=== PATIENT | female | born 1950 | race Caucasian/White ===

== ENCOUNTER → 2016-11-18 | Outpatient (REF) | payer MEDICARE ==
[2016-11-18 17:26] LABS: ANION GAP 6 MEQ/L (8-16); BLOOD UREA NITROGEN 15 MG/DL (7-18); CALCIUM LEVEL 9.5 MG/DL (8.8-10.2); CARBON DIOXIDE LEVEL 32 MEQ/L (21-32); CHLORIDE LEVEL 102 MEQ/L (98-107); CREATININE FOR GFR 0.78 MG/DL (0.55-1.02); GLOMERULAR FILTRATION RATE > 60.0 (>45); GLUCOSE, FASTING 90 MG/DL (80-110); POTASSIUM SERUM 4.1 MEQ/L (3.5-5.1); SODIUM LEVEL 140 MEQ/L (136-145)
== END ==
LOC: M SFHCCLAY 10:58
PROVIDERS: ATTEND Family Medicine
DX: I10 Essential (primary) hypertension (principal)
CPT/HCPCS: 80048; G0463

== ENCOUNTER → 2017-11-09 | Outpatient (CLI) | payer MEDICARE | LOC: M CLY 11:53 | DX: R05 Cough (principal) | CPT/HCPCS: 71046; G0463 ==

== ENCOUNTER → 2018-02-15 | Outpatient (REF) | payer MEDICARE ==
[2018-02-15 11:42] LABS: HEMATOCRIT 40.1 % (36.0-47.0); HEMOGLOBIN 13.2 g/dl (12.0-15.5); MEAN CORPUSCULAR HEMOGLOBIN 28.9 pg (27.0-33.0); MEAN CORPUSCULAR HGB CONC 32.9 g/dl (32.0-36.5); MEAN CORPUSCULAR VOLUME 87.7 fl (80.0-96.0); PLATELET COUNT, AUTOMATED 201 10^3/uL (150-450); RED BLOOD COUNT 4.57 10^6/uL (4.00-5.40); RED CELL DISTRIBUTION WIDTH 13.1 % (11.5-14.5); WHITE BLOOD COUNT 9.3 10^3/uL (4.0-10.0)
[2018-02-15 12:04] LABS: ALBUMIN 3.3 GM/DL (3.2-5.2); ALBUMIN/GLOBULIN RATIO 1.03 (1.00-1.93); ALKALINE PHOSPHATASE 70 U/L (45-117); ALT/SGPT 23 U/L (12-78); ANION GAP 9 MEQ/L (8-16); AST/SGOT 14 U/L (7-37); BILIRUBIN,TOTAL 0.4 MG/DL (0.2-1.0); BLOOD UREA NITROGEN 11 MG/DL (7-18); CALCIUM LEVEL 8.5 MG/DL (8.8-10.2); CARBON DIOXIDE LEVEL 30 MEQ/L (21-32); CHLORIDE LEVEL 104 MEQ/L (98-107); CHOLESTEROL LEVEL 145 MG/DL (<200); CHOLESTEROL RISK RATIO 2.959 (<5); CREATININE FOR GFR 0.85 MG/DL (0.55-1.30); GLOMERULAR FILTRATION RATE > 60.0 (>45); GLUCOSE, FASTING 115 MG/DL (70-100); HDL CHOLESTEROL 49 MG/DL (>40); LDL CHOLESTEROL 72.2 MG/DL (<100); NON-HDL-C 96 MG/DL; SODIUM LEVEL 143 MEQ/L (136-145); TOTAL PROTEIN 6.5 GM/DL (6.4-8.2); TRIGLYCERIDES LEVEL 119 MG/DL (<150)
== END ==
LOC: M SFHCCLAY 07:26
DX: I10 Essential (primary) hypertension (principal); L40.9 Psoriasis, unspecified
CPT/HCPCS: 84443

== ENCOUNTER 2018-02-20 09:11 | Emergency (ER) | payer MEDICARE ==
[2018-02-20] MEDS: KETOROLAC 30 MG/ML VIAL (J1885) IV (10:00)
[2018-02-20] MEDS: ONDANSETRON 4MG/2ML VIAL (J2405) IV (10:00)
[2018-02-20 10:03] LABS: BASO % 0.2 % (0.0-1.0); EOS % 0.2 % (0.0-3.0); HEMATOCRIT 40.8 % (36.0-47.0); HEMOGLOBIN 14.1 g/dl (12.0-15.5); IMMATURE GRANULOCYTE % 0.9 % (0-3.0); LYMPH # 1.5 10^3/uL (1.5-4.5); LYMPH % 9.4 % (24.0-44.0); MEAN CORPUSCULAR HEMOGLOBIN 29.5 pg (27.0-33.0); MEAN CORPUSCULAR HGB CONC 34.6 g/dl (32.0-36.5); MEAN CORPUSCULAR VOLUME 85.4 fl (80.0-96.0); MONO # 0.7 10^3/uL (0.0-0.8); MONO % 4.5 % (0.0-5.0); NEUTROPHILS # 13.6 10^3/uL (1.8-7.7); NEUTROPHILS % 84.8 % (36.0-66.0); PLATELET COUNT, AUTOMATED 282 10^3/uL (150-450); RED BLOOD COUNT 4.78 10^6/uL (4.00-5.40); RED CELL DISTRIBUTION WIDTH 12.6 % (11.5-14.5); WHITE BLOOD COUNT 16.1 10^3/uL (4.0-10.0)
[2018-02-20 10:42] LABS: ALBUMIN 2.9 GM/DL (3.2-5.2); ALKALINE PHOSPHATASE 70 U/L (45-117); ALT/SGPT 21 U/L (12-78); ANION GAP 9 MEQ/L (8-16); AST/SGOT 13 U/L (7-37); BILIRUBIN,TOTAL 0.5 MG/DL (0.2-1.0); BLOOD UREA NITROGEN 11 MG/DL (7-18); CALCIUM LEVEL 8.8 MG/DL (8.8-10.2); CARBON DIOXIDE LEVEL 30 MEQ/L (21-32); CHLORIDE LEVEL 95 MEQ/L (98-107); CREATININE FOR GFR 0.85 MG/DL (0.55-1.30); GLOMERULAR FILTRATION RATE > 60.0 (>45); GLUCOSE, FASTING 104 MG/DL (70-100); LIPASE 77 U/L (73-393); POTASSIUM SERUM 3.2 MEQ/L (3.5-5.1); SODIUM LEVEL 134 MEQ/L (136-145); TOTAL PROTEIN 7.7 GM/DL (6.4-8.2); TROPONIN I < 0.02 NG/ML (< 0.10)
[2018-02-20 10:43] LABS: D-DIMER QUANT > 4000.0 ng/ml (<500)
[2018-02-20 10:44] LABS: CK-MB VALUE MASS < 1.0 NG/ML (<3.6); CPK CREATINE PHOSPHOKINASE 76 U/L (26-192); MB/CK RELATIVE INDEX 1.31 (< OR =4)
[2018-02-20] MEDS: MAGNESIUM CITRATE 300 ML BTL PO (11:45)
== END 2018-02-20 11:53 | disposition home or self-care (01) ==
LOC: M ED 09:11
DX: K59.00 Constipation, unspecified (principal); R14.1 Gas pain; R06.02 Shortness of breath; Z98.890 Other specified postprocedural states; I10 Essential (primary) hypertension; I45.10 Unspecified right bundle-branch block; Z91.041 Radiographic dye allergy status; Z88.0 Allergy status to penicillin; Z88.5 Allergy status to narcotic agent; Z79.899 Other long term (current) drug therapy
CPT/HCPCS: J2405

== ENCOUNTER → 2018-03-23 | Outpatient (REF) | payer MEDICARE ==
[2018-03-24 11:55] LABS: FREE T4 0.89 NG/DL (0.76-1.46)
== END ==
LOC: M SFHCCLAY 15:20
DX: R79.89 Other specified abnormal findings of blood chemistry (principal); E07.9 Disorder of thyroid, unspecified
CPT/HCPCS: 84443

== ENCOUNTER → 2018-12-06 | Outpatient (REF) | payer MEDICARE ==
[~2018-12-06] MED LIST: CARV6.25 PO; CHLO125TA PO; FLEEENE4 PR; KION15SU PO; MIRA3350 PO; REGL10TA6 PO; SPIR-10 PO; ZOFR4TAB14 PO
== END ==
LOC: M SFHCCLAY 13:28
PROVIDERS: ATTEND Family Medicine
DX: R79.89 Other specified abnormal findings of blood chemistry (principal)

== ENCOUNTER → 2019-11-20 | Outpatient (REF) | payer MEDICARE | LOC: M LAB REF 08:59 | PROVIDERS: ATTEND Dermatology | DX: R21 Rash and other nonspecific skin eruption (principal); L57.0 Actinic keratosis ==

== ENCOUNTER → 2020-04-24 | Outpatient (REF) | payer MEDICARE ==
[2020-04-24 16:11] LABS: HEMATOCRIT 41.5 % (36.0-47.0); HEMOGLOBIN 13.2 g/dl (12.0-15.5); MEAN CORPUSCULAR HEMOGLOBIN 31.1 pg (27.0-33.0); MEAN CORPUSCULAR HGB CONC 31.8 g/dl (32.0-36.5); MEAN CORPUSCULAR VOLUME 97.6 fl (80.0-96.0); PLATELET COUNT, AUTOMATED 150 10^3/uL (150-450); RED BLOOD COUNT 4.25 10^6/uL (4.00-5.40); WHITE BLOOD COUNT 7.2 10^3/uL (4.0-10.0)
[2020-04-24 16:46] LABS: BLOOD UREA NITROGEN 12 MG/DL (7-18); CALCIUM LEVEL 9.5 MG/DL (8.8-10.2); CARBON DIOXIDE LEVEL 30 MEQ/L (21-32); CHLORIDE LEVEL 102 MEQ/L (98-107); FREE T4 0.63 NG/DL (0.76-1.46); GLOMERULAR FILTRATION RATE > 60.0 (>45); GLUCOSE, FASTING 85 MG/DL (70-100); POTASSIUM SERUM 4.9 MEQ/L (3.5-5.1); SODIUM LEVEL 138 MEQ/L (136-145)
== END ==
LOC: M SFHCCLAY 09:55
PROVIDERS: ATTEND Family Medicine
DX: I48.0 Paroxysmal atrial fibrillation (principal); Z23 Encounter for immunization
CPT/HCPCS: 80048; 84439; 84443; 85027; 90682; G0008; G0463

== ENCOUNTER → 2020-11-05 | Outpatient (REF) | payer MEDICARE ==
[2020-11-05 16:56] LABS: ALBUMIN 3.6 GM/DL (3.2-5.2); ALT/SGPT 22 U/L (12-78); BILIRUBIN,TOTAL 0.3 MG/DL (0.2-1.0); BLOOD UREA NITROGEN 14 MG/DL (7-18); CALCIUM LEVEL 9.1 MG/DL (8.8-10.2); CARBON DIOXIDE LEVEL 34 MEQ/L (21-32); CHLORIDE LEVEL 108 MEQ/L (98-107); CREATININE FOR GFR 0.58 MG/DL (0.55-1.30); GLOMERULAR FILTRATION RATE > 60.0 (>45); GLUCOSE, FASTING 88 MG/DL (70-100); SODIUM LEVEL 145 MEQ/L (136-145); TOTAL PROTEIN 6.2 GM/DL (6.4-8.2)
== END ==
LOC: M SFHCCLAY 10:33
PROVIDERS: ATTEND Family Medicine
DX: I48.0 Paroxysmal atrial fibrillation (principal); I10 Essential (primary) hypertension; E03.9 Hypothyroidism, unspecified; Z98.84 Bariatric surgery status
CPT/HCPCS: 80053; 84439; 84443; G0463

== ENCOUNTER → 2020-11-25 | Outpatient (REF) | payer MEDICARE ==
[2020-11-25 16:42] LABS: HEMATOCRIT 39.6 % (36.0-47.0); HEMOGLOBIN 12.8 g/dl (12.0-15.5); MEAN CORPUSCULAR HEMOGLOBIN 31.8 pg (27.0-33.0); MEAN CORPUSCULAR HGB CONC 32.3 g/dl (32.0-36.5); MEAN CORPUSCULAR VOLUME 98.3 fl (80.0-96.0); PLATELET COUNT, AUTOMATED 168 10^3/uL (150-450); RED BLOOD COUNT 4.03 10^6/uL (4.00-5.40); WHITE BLOOD COUNT 6.3 10^3/uL (4.0-10.0)
[2020-11-25 17:26] LABS: PERCENT SATURATION 34.6 % (13.2-45.0)
== END ==
LOC: M LABDRAWC 15:50
PROVIDERS: ATTEND Registered Nurse Medical-Surgical
DX: K90.9 Intestinal malabsorption, unspecified (principal); D50.8 Other iron deficiency anemias; E61.1 Iron deficiency

== ENCOUNTER → 2021-03-06 | Outpatient (REF) | payer MEDICARE ==
[2021-03-06 17:00] LABS: HEMOGLOBIN 10.7 g/dl (12.0-15.5); MEAN CORPUSCULAR HEMOGLOBIN 31.2 pg (27.0-33.0); MEAN CORPUSCULAR HGB CONC 31.5 g/dl (32.0-36.5); MEAN CORPUSCULAR VOLUME 99.1 fl (80.0-96.0); PLATELET COUNT, AUTOMATED 299 10^3/uL (150-450); RED BLOOD COUNT 3.43 10^6/uL (4.00-5.40); WHITE BLOOD COUNT 6.1 10^3/uL (4.0-10.0)
[2021-03-06 17:24] LABS: ALBUMIN 2.5 GM/DL (3.2-5.2); ALT/SGPT 26 U/L (12-78); BILIRUBIN,TOTAL 0.3 MG/DL (0.2-1.0); BLOOD UREA NITROGEN 10 MG/DL (7-18); CALCIUM LEVEL 8.6 MG/DL (8.8-10.2); CARBON DIOXIDE LEVEL 29 MEQ/L (21-32); CHLORIDE LEVEL 109 MEQ/L (98-107); FREE T4 1.08 NG/DL (0.76-1.46); GLOMERULAR FILTRATION RATE > 60.0 (>45); GLUCOSE, FASTING 81 MG/DL (70-100); IRON (FE) 54 UG/DL (50-170); PERCENT SATURATION 21.2 % (13.2-45.0); POTASSIUM SERUM 4.6 MEQ/L (3.5-5.1); SODIUM LEVEL 143 MEQ/L (136-145); TOTAL IRON BINDING CAPACITY 255 UG/DL (250-450); TOTAL PROTEIN 5.4 GM/DL (6.4-8.2)
[2021-03-06 17:26] LABS: VITAMIN B12 LEVEL 660 PG/ML (247-911)
== END ==
LOC: M SFHCCLAY 09:52
PROVIDERS: ATTEND Family Medicine
DX: T81.89XA Other complications of procedures, not elsewhere classified, initial encounter (principal); E44.0 Moderate protein-calorie malnutrition; E03.9 Hypothyroidism, unspecified; Z98.84 Bariatric surgery status
CPT/HCPCS: 80053; 82607; 83550; 84439; 84443; 85027; 90682; G0008; G0463

== ENCOUNTER → 2021-04-17 | Outpatient (REF) | payer MEDICARE ==
[2021-04-17 16:57] LABS: ALBUMIN 3.7 GM/DL (3.2-5.2); ALT/SGPT 25 U/L (12-78); BILIRUBIN,TOTAL 0.3 MG/DL (0.2-1.0); BLOOD UREA NITROGEN 14 MG/DL (7-18); CALCIUM LEVEL 9.4 MG/DL (8.8-10.2); CARBON DIOXIDE LEVEL 32 MEQ/L (21-32); CHLORIDE LEVEL 105 MEQ/L (98-107); CREATININE FOR GFR 0.65 MG/DL (0.55-1.30); GLOMERULAR FILTRATION RATE > 60.0 (>45); GLUCOSE, FASTING 98 MG/DL (70-100); POTASSIUM SERUM 4.4 MEQ/L (3.5-5.1); SODIUM LEVEL 139 MEQ/L (136-145); TOTAL PROTEIN 6.7 GM/DL (6.4-8.2)
== END ==
LOC: M SFHCCLAY 11:56
PROVIDERS: ATTEND Family Medicine
DX: E44.0 Moderate protein-calorie malnutrition (principal)
CPT/HCPCS: 80053; G0463

== ENCOUNTER → 2021-11-11 | Outpatient (REF) | payer MEDICARE ==
[2021-11-11 11:23] LABS: BASO % 0.8 % (0.0-1.0); EOS # 0.2 10^3/uL (0.0-0.5); EOS % 4.6 % (0.0-3.0); HEMATOCRIT 40.9 % (36.0-47.0); HEMOGLOBIN 13.4 g/dl (12.0-15.5); LYMPH # 1.9 10^3/uL (1.5-5.0); LYMPH % 37.6 % (24.0-44.0); MEAN CORPUSCULAR HEMOGLOBIN 30.8 pg (27.0-33.0); MEAN CORPUSCULAR HGB CONC 32.8 g/dl (32.0-36.5); MONO # 0.4 10^3/uL (0.0-0.8); MONO % 8.2 % (2.0-8.0); NEUTROPHILS # 2.4 10^3/uL (1.5-8.5); NEUTROPHILS % 48.6 % (36.0-66.0); PLATELET COUNT, AUTOMATED 154 10^3/uL (150-450); RED BLOOD COUNT 4.35 10^6/uL (4.00-5.40)
[2021-11-11 12:10] LABS: ALBUMIN 3.3 GM/DL (3.2-5.2); ALT/SGPT 20 U/L (12-78); BILIRUBIN,TOTAL 0.7 MG/DL (0.2-1.0); BLOOD UREA NITROGEN 9 MG/DL (7-18); CALCIUM LEVEL 8.6 MG/DL (8.8-10.2); CARBON DIOXIDE LEVEL 30 MEQ/L (21-32); CHLORIDE LEVEL 105 MEQ/L (98-107); CHOLESTEROL LEVEL 166 MG/DL (<200); CHOLESTEROL RISK RATIO 1.627 (<5); CREATININE FOR GFR 0.68 MG/DL (0.55-1.30); FERRITIN 13 NG/ML (8-252); FREE T4 1.09 NG/DL (0.76-1.46); GLOMERULAR FILTRATION RATE > 60.0 (>39); GLUCOSE, FASTING 87 MG/DL (70-100); HDL CHOLESTEROL 102 MG/DL (>40); IRON (FE) 99 UG/DL (50-170); LDL CHOLESTEROL 52 MG/DL (<100); MAGNESIUM LEVEL 2.2 MG/DL (1.8-2.4); NON-HDL-C 64 MG/DL; PERCENT SATURATION 26.7 % (13.2-45.0); POTASSIUM SERUM 4.5 MEQ/L (3.5-5.1); PTH INTACT 35.7 PG/ML (18.5-88.0); SODIUM LEVEL 140 MEQ/L (136-145); TOTAL IRON BINDING CAPACITY 371 UG/DL (250-450); TOTAL PROTEIN 6.3 GM/DL (6.4-8.2); TRIGLYCERIDES LEVEL 59 MG/DL (<150); VITAMIN B12 LEVEL 856 PG/ML (247-911)
== END ==
LOC: M SFHCCLAY 07:16
PROVIDERS: ATTEND Family Medicine
DX: I10 Essential (primary) hypertension (principal); K21.9 Gastro-esophageal reflux disease without esophagitis; I48.0 Paroxysmal atrial fibrillation; Z98.84 Bariatric surgery status; Z78.0 Asymptomatic menopausal state; L40.9 Psoriasis, unspecified; L65.9 Nonscarring hair loss, unspecified

== ENCOUNTER → 2022-01-07 | Outpatient (CLI) | payer MEDICARE | LOC: M LABSMTC 09:07 | PROVIDERS: ATTEND Plastic Surgery | DX: Z20.822 Contact with and (suspected) exposure to COVID-19 (principal) ==

== ENCOUNTER → 2022-03-31 | Outpatient (REF) | payer MEDICARE | LOC: M SFHCCLAY 10:55 | PROVIDERS: ATTEND Physician Assistant | DX: R05.1 Acute cough (principal) ==

== ENCOUNTER → 2022-11-19 | Outpatient (REF) | payer MEDICARE ==
[2022-11-19 12:06] LABS: BLOOD UREA NITROGEN 11 MG/DL (9-23); CALCIUM LEVEL 8.5 MG/DL (8.3-10.6); CARBON DIOXIDE LEVEL 31 MMOL/L (20-31); CHLORIDE LEVEL 108 MMOL/L (98-107); CREATININE FOR GFR 0.57 MG/DL (0.55-1.30); GLOMERULAR FILTRATION RATE > 60.0 (>39); GLUCOSE, FASTING 93 MG/DL (74-106); POTASSIUM SERUM 4.6 MMOL/L (3.5-5.1); SODIUM LEVEL 143 MMOL/L (136-145)
[2022-11-19 12:08] LABS: THYROID STIMULATING HORMONE 0.234 uIU/ML (0.55-4.78)
[2022-11-19 12:09] LABS: FREE T4 1.08 NG/DL (0.89-1.76)
== END ==
LOC: M SFHCCLAY 07:02
PROVIDERS: ATTEND Family Medicine
DX: I48.0 Paroxysmal atrial fibrillation (principal); I10 Essential (primary) hypertension

== ENCOUNTER → 2022-11-19 | Outpatient (REF) | payer MEDICARE ==
[2022-11-19 12:00] LABS: BASO % 0.5 % (0.0-1.0); EOS # 0.1 10^3/uL (0.0-0.5); EOS % 1.9 % (0.0-3.0); HEMATOCRIT 40.1 % (36.0-47.0); HEMOGLOBIN 13.2 g/dl (12.0-15.5); LYMPH # 1.6 10^3/uL (1.5-5.0); LYMPH % 27.1 % (24.0-44.0); MEAN CORPUSCULAR HEMOGLOBIN 31.7 pg (27.0-33.0); MEAN CORPUSCULAR HGB CONC 32.9 g/dl (32.0-36.5); MEAN CORPUSCULAR VOLUME 96.4 fl (80.0-96.0); MONO # 0.4 10^3/uL (0.0-0.8); MONO % 6.4 % (2.0-8.0); NEUTROPHILS # 3.7 10^3/uL (1.5-8.5); NEUTROPHILS % 63.8 % (36.0-66.0); PLATELET COUNT, AUTOMATED 152 10^3/uL (150-450); RED BLOOD COUNT 4.16 10^6/uL (4.00-5.40); WHITE BLOOD COUNT 5.8 10^3/uL (4.0-10.0)
[2022-11-19 12:05] LABS: C REACTIVE PROTEIN QUANTITATIV < 0.40 MG/DL (<1.0)
[2022-11-19 12:06] LABS: RHEUMATOID FACTOR QUANT 9.4 IU/ML (<14)
[2022-11-19 12:15] LABS: ERYTHROCYTE SEDIMENTATION RATE 9 mm/hr (0-30)
[2022-11-20 12:08] LABS: ANTINUCLEAR ANTIBODIES DIRECT Negative (Negative)
== END ==
LOC: M LABDRAWC 11:11
PROVIDERS: ATTEND Orthopaedic Surgery
DX: M25.562 Pain in left knee (principal); I48.0 Paroxysmal atrial fibrillation; I10 Essential (primary) hypertension

== ENCOUNTER → 2023-03-02 | Outpatient (REF) | payer MEDICARE | LOC: M SFHCCLAY 07:38 | PROVIDERS: ATTEND Family Medicine | DX: I48.0 Paroxysmal atrial fibrillation (principal); E03.9 Hypothyroidism, unspecified; Z98.84 Bariatric surgery status ==

== ENCOUNTER → 2023-03-03 | Outpatient (REF) | payer MEDICARE ==
[2023-03-03 12:30] LABS: HEMATOCRIT 41.8 % (36.0-47.0); HEMOGLOBIN 13.3 g/dl (12.0-15.5); MEAN CORPUSCULAR HEMOGLOBIN 31.3 pg (27.0-33.0); MEAN CORPUSCULAR HGB CONC 31.8 g/dl (32.0-36.5); MEAN CORPUSCULAR VOLUME 98.4 fl (80.0-96.0); PLATELET COUNT, AUTOMATED 180 10^3/uL (150-450); RED BLOOD COUNT 4.25 10^6/uL (4.00-5.40); WHITE BLOOD COUNT 4.7 10^3/uL (4.0-10.0)
[2023-03-03 13:03] LABS: FREE T4 1.05 NG/DL (0.89-1.76); THYROID STIMULATING HORMONE 1.996 uIU/ML (0.55-4.78)
[2023-03-03 13:04] LABS: VITAMIN B12 LEVEL 1310 PG/ML (211-911)
[2023-03-03 13:06] LABS: ALBUMIN 3.4 G/DL (3.2-5.2); ALKALINE PHOSPHATASE 73 U/L (46-116); ALT/SGPT 35 U/L (7.0-40); AST/SGOT 31 U/L (<34); BILIRUBIN,TOTAL 0.5 MG/DL (0.3-1.2); BLOOD UREA NITROGEN 10 MG/DL (9-23); CALCIUM LEVEL 8.9 MG/DL (8.3-10.6); CARBON DIOXIDE LEVEL 28 MMOL/L (20-31); CHLORIDE LEVEL 105 MMOL/L (98-107); CHOLESTEROL LEVEL 167 MG/DL (<200); CHOLESTEROL RISK RATIO 1.76 (<5); CREATININE FOR GFR 0.68 MG/DL (0.55-1.30); GLOMERULAR FILTRATION RATE > 60.0 (>39); GLUCOSE, FASTING 84 MG/DL (74-106); HDL CHOLESTEROL 94.6 MG/DL (>40); LDL CHOLESTEROL 59.4 MG/DL (<100); MAGNESIUM LEVEL 2.1 MG/DL (1.8-2.4); NON-HDL-C 72.4 MG/DL; POTASSIUM SERUM 4.6 MMOL/L (3.5-5.1); SODIUM LEVEL 142 MMOL/L (136-145); TOTAL PROTEIN 6.1 G/DL (5.7-8.2); TRIGLYCERIDES LEVEL 65 MG/DL (<150)
[2023-03-04 08:51] LABS: PTH INTACT 33.4 PG/ML (18.5-88.0)
== END ==
LOC: M SFHCCLAY 07:47
PROVIDERS: ATTEND Family Medicine
DX: I48.0 Paroxysmal atrial fibrillation (principal); E03.9 Hypothyroidism, unspecified; Z98.84 Bariatric surgery status

== ENCOUNTER → 2023-11-23 | Outpatient (REF) | payer MEDICARE ==
[2023-11-23 18:57] LABS: ALBUMIN 3.5 G/DL (3.2-5.2); ALKALINE PHOSPHATASE 91 U/L (46-116); ALT/SGPT 39 U/L (7.0-40); AST/SGOT 37 U/L (<34); BILIRUBIN,TOTAL 0.7 MG/DL (0.3-1.2); BLOOD UREA NITROGEN 12 MG/DL (9-23); CALCIUM LEVEL 8.7 MG/DL (8.3-10.6); CARBON DIOXIDE LEVEL 28 MMOL/L (20-31); CHLORIDE LEVEL 108 MMOL/L (98-107); CREATININE FOR GFR 0.63 MG/DL (0.55-1.30); GLOMERULAR FILTRATION RATE > 60.0 (>39); GLUCOSE, FASTING 98 MG/DL (74-106); POTASSIUM SERUM 4.5 MMOL/L (3.5-5.1); SODIUM LEVEL 144 MMOL/L (136-145); TOTAL PROTEIN 6.2 G/DL (5.7-8.2)
[2023-11-23 19:02] LABS: THYROID STIMULATING HORMONE 2.139 uIU/ML (0.55-4.78)
[2023-11-23 19:04] LABS: VITAMIN B12 LEVEL > 2000 PG/ML (211-911)
== END ==
LOC: M SFHCCLAY 09:13
PROVIDERS: ATTEND Family Medicine
DX: E03.9 Hypothyroidism, unspecified (principal); I48.0 Paroxysmal atrial fibrillation; Z98.84 Bariatric surgery status

== ENCOUNTER → 2024-02-29 | Outpatient (CLI) | payer MEDICARE | LOC: M CLY 12:10 | PROVIDERS: ATTEND Family Medicine | DX: J18.9 Pneumonia, unspecified organism (principal) ==

== ENCOUNTER → 2024-03-07 | Outpatient (CLI) | payer MEDICARE | LOC: M CLY 08:58 | PROVIDERS: ATTEND Family Medicine | DX: J18.9 Pneumonia, unspecified organism (principal) ==

== ENCOUNTER → 2024-03-21 | Outpatient (CLI) | payer MEDICARE | LOC: M CLY 08:11 | PROVIDERS: ATTEND Family Medicine | DX: J18.9 Pneumonia, unspecified organism (principal) ==

== ENCOUNTER → 2024-03-22 | Outpatient (REF) | payer MEDICARE ==
[2024-03-22 17:31] LABS: BASO # 0.1 10^3/uL (0.0-0.2); EOS # 0.3 10^3/uL (0.0-0.5); EOS % 4.2 % (0.0-3.0); HEMATOCRIT 40.7 % (36.0-47.0); LYMPH # 1.7 10^3/uL (1.5-5.0); LYMPH % 20.4 % (24.0-44.0); MEAN CORPUSCULAR HEMOGLOBIN 31.3 pg (27.0-33.0); MEAN CORPUSCULAR HGB CONC 31.9 g/dl (32.0-36.5); MEAN CORPUSCULAR VOLUME 97.8 fl (80.0-96.0); MONO # 0.6 10^3/uL (0.0-0.8); MONO % 6.9 % (2.0-8.0); NEUTROPHILS # 5.5 10^3/uL (1.5-8.5); PLATELET COUNT, AUTOMATED 383 10^3/uL (150-450); RED BLOOD COUNT 4.16 10^6/uL (4.00-5.40); WHITE BLOOD COUNT 8.1 10^3/uL (4.0-10.0)
[2024-03-22 18:03] LABS: ALBUMIN 2.7 G/DL (3.2-5.2); ALKALINE PHOSPHATASE 137 U/L (46-116); ALT/SGPT 26 U/L (7.0-40); AST/SGOT 25 U/L (<34); BILIRUBIN,TOTAL 0.3 MG/DL (0.3-1.2); BLOOD UREA NITROGEN 8 MG/DL (9-23); CALCIUM LEVEL 9.1 MG/DL (8.3-10.6); CARBON DIOXIDE LEVEL 29 MMOL/L (20-31); CHLORIDE LEVEL 106 MMOL/L (98-107); CREATININE FOR GFR 0.64 MG/DL (0.55-1.30); GLOMERULAR FILTRATION RATE > 60.0 (>39); GLUCOSE, FASTING 81 MG/DL (74-106); POTASSIUM SERUM 4.8 MMOL/L (3.5-5.1); SODIUM LEVEL 141 MMOL/L (136-145); TOTAL PROTEIN 6.1 G/DL (5.7-8.2)
[2024-03-25 04:12] LABS: PROTEIN, TOTAL SO 6.1 g/dL (6.1-8.1)
[2024-03-27 12:42] LABS: ALPHA 1 GLOBULINS SO 0.5 g/dL (0.2-0.3); BETA 2 GLOBULIN SO 0.4 g/dL (0.2-0.5); BETA GLOBULIN SO 0.5 g/dL (0.4-0.6); GAMMA GLOBULINS SO 0.7 g/dL (0.8-1.7)
== END ==
LOC: M SFHCCLAY 14:58
PROVIDERS: ATTEND Family Medicine
DX: J18.9 Pneumonia, unspecified organism (principal)

== ENCOUNTER → 2024-03-23 | Outpatient (CLI) | payer MEDICARE ==
[~2024-03-23] MED LIST changes: +ISOVUE-370 76% 100ML VIAL As Ordered ONE; +methylPREDNISolone SUSP 40MG/ML 1ML VIAL (DEPO MEDROL) IM ONE
[2024-03-23] MEDS: diphenhydrAMINE 50MG/ML VIAL IV STA (11:03)
[2024-03-23] MEDS: methylPREDNISolone 40MG 1ML VIAL IV ONE (11:18)
== END ==
LOC: M RAD 10:09
PROVIDERS: ATTEND Family Medicine
DX: R91.8 Other nonspecific abnormal finding of lung field (principal); R59.0 Localized enlarged lymph nodes
CPT/HCPCS: 71275; J1200; J2919; Q9967

== ENCOUNTER → 2024-04-03 | Outpatient (REF) | payer MEDICARE ==
[~2024-04-03] MED LIST changes: -ISOVUE-370 76% 100ML VIAL As Ordered ONE; -methylPREDNISolone SUSP 40MG/ML 1ML VIAL (DEPO MEDROL) IM ONE
[2024-04-03 18:47] LABS: BASO # 0.1 10^3/uL (0.0-0.2); BASO % 0.8 % (0.0-1.0); EOS # 0.2 10^3/uL (0.0-0.5); EOS % 2.8 % (0.0-3.0); HEMATOCRIT 40.2 % (36.0-47.0); LYMPH # 1.3 10^3/uL (1.5-5.0); LYMPH % 20.5 % (24.0-44.0); MEAN CORPUSCULAR HEMOGLOBIN 31.6 pg (27.0-33.0); MEAN CORPUSCULAR HGB CONC 32.3 g/dl (32.0-36.5); MEAN CORPUSCULAR VOLUME 97.6 fl (80.0-96.0); MONO # 0.6 10^3/uL (0.0-0.8); MONO % 9.2 % (2.0-8.0); NEUTROPHILS # 4.3 10^3/uL (1.5-8.5); NEUTROPHILS % 66.1 % (36.0-66.0); PLATELET COUNT, AUTOMATED 111 10^3/uL (150-450); RED BLOOD COUNT 4.12 10^6/uL (4.00-5.40); WHITE BLOOD COUNT 6.5 10^3/uL (4.0-10.0)
[2024-04-03 18:49] LABS: C REACTIVE PROTEIN QUANTITATIV 3.2 MG/DL (<1.0)
[2024-04-03 18:50] LABS: RHEUMATOID FACTOR QUANT 10.1 IU/ML (<14)
[2024-04-03 18:54] LABS: ERYTHROCYTE SEDIMENTATION RATE 41 mm/hr (0-30)
== END ==
LOC: M LABDRAWC 17:45
PROVIDERS: ATTEND Internal Medicine Pulmonary Disease
DX: R91.8 Other nonspecific abnormal finding of lung field (principal)

== ENCOUNTER → 2024-04-06 | Outpatient (REF) | payer MEDICARE | LOC: M SFHCCLAY 12:16 | PROVIDERS: ATTEND Family Medicine | DX: K52.1 Toxic gastroenteritis and colitis (principal); R19.7 Diarrhea, unspecified; A04.8 Other specified bacterial intestinal infections ==

== ENCOUNTER → 2024-05-02 | Outpatient (CLI) | payer MEDICARE | LOC: M RAD 14:18 | PROVIDERS: ATTEND Internal Medicine Pulmonary Disease | DX: R91.8 Other nonspecific abnormal finding of lung field (principal) ==

== ENCOUNTER → 2024-11-08 | Outpatient (REF) | payer MEDICARE | LOC: M LAB REF 17:00 | PROVIDERS: ATTEND Internal Medicine Pulmonary Disease | DX: R91.8 Other nonspecific abnormal finding of lung field (principal) ==

== ENCOUNTER → 2024-12-27 | Outpatient (REF) | payer MEDICARE ==
[2024-12-27 19:39] LABS: ALT/SGPT 99.0 U/L (7.0-40); AST/SGOT 128.0 U/L (<34); CALCIUM LEVEL 8.7 MG/DL (8.3-10.6); CARBON DIOXIDE LEVEL 33.0 MMOL/L (20-31); CARBON DIOXIDE LEVEL 34.0 MMOL/L (20-31); CHLORIDE LEVEL 98.0 MMOL/L (98-107); CHLORIDE LEVEL 99.0 MMOL/L (98-107); CREATININE FOR GFR 0.83 MG/DL (0.55-1.30); CREATININE FOR GFR 0.84 MG/DL (0.55-1.30); GLOMERULAR FILTRATION RATE 73.3 (>39); GLOMERULAR FILTRATION RATE 74.4 (>39); POTASSIUM SERUM 4.2 MMOL/L (3.5-5.1); SODIUM LEVEL 142.0 MMOL/L (136-145)
== END ==
LOC: M SFHCCLAY 10:26
PROVIDERS: ATTEND Nurse Practitioner Family
DX: R60.0 Localized edema (principal); R74.8 Abnormal levels of other serum enzymes

== ENCOUNTER → 2025-02-13 | Outpatient (CLI) | payer MEDICARE | LOC: M PLAIMG 11:53 | PROVIDERS: ATTEND Internal Medicine Pulmonary Disease | DX: R06.00 Dyspnea, unspecified (principal); I31.39 Other pericardial effusion (noninflammatory) ==

== ENCOUNTER → 2025-03-07 | Outpatient (REF) | payer MEDICARE ==
[2025-03-07 16:01] LABS: ERYTHROCYTE SEDIMENTATION RATE 31 mm/hr (0-30)
[2025-03-07 18:15] LABS: C REACTIVE PROTEIN QUANTITATIV 0.95 MG/DL (<1.0)
[2025-03-07 18:27] LABS: ALT/SGPT 82.0 U/L (7.0-40); AST/SGOT 115.0 U/L (<34); CALCIUM LEVEL 8.8 MG/DL (8.3-10.6); CARBON DIOXIDE LEVEL 31.0 MMOL/L (20-31); CHLORIDE LEVEL 99.0 MMOL/L (98-107); CREATININE FOR GFR 0.81 MG/DL (0.55-1.30); GLOMERULAR FILTRATION RATE 76.6 (>39); POTASSIUM SERUM 4.0 MMOL/L (3.5-5.1); SODIUM LEVEL 140.0 MMOL/L (136-145); VITAMIN B12 LEVEL 1581.0 PG/ML (211-911)
== END ==
LOC: M LAB REF 14:52
PROVIDERS: ATTEND Internal Medicine Gastroenterology
DX: K59.1 Functional diarrhea (principal); R10.84 Generalized abdominal pain; R19.5 Other fecal abnormalities; E07.9 Disorder of thyroid, unspecified

== ENCOUNTER → 2025-03-08 | Outpatient (REF) | payer MEDICARE | LOC: M LAB REF 15:09 | PROVIDERS: ATTEND Internal Medicine Gastroenterology | DX: R19.5 Other fecal abnormalities (principal); R10.84 Generalized abdominal pain; K59.1 Functional diarrhea ==

== ENCOUNTER → 2025-04-10 | Outpatient (REF) | payer MEDICARE ==
[2025-04-12 13:22] LABS: HPV APTIMA Not Detected (Not Detected)
== END ==
LOC: M PLALAB 08:29
PROVIDERS: ATTEND Physician Assistant
DX: Z12.4 Encounter for screening for malignant neoplasm of cervix (principal)
CPT/HCPCS: 87624; G0123